=== PATIENT | female | born 1985 | race African-American/Black ===

== ENCOUNTER 2023-05-27 00:12 | Emergency (ER) | payer MEDICAID ==
[~2023-05-27] VITALS: Ht 180.3 cm; Wt 118.0 kg
[2023-05-27] MEDS ORDERED: HYDROcodone-ACET 10/325MG TAB PO ONE (00:30)
[2023-05-27] MEDS ORDERED: CEPH250C PO (00:36)
[2023-05-27] MEDS ORDERED: ACET300T58 PO (00:36)
[2023-05-27 00:46] VITALS: BP 125/81; PULSE 83; RESP 18; TEMP 97.9; O2SAT 97
== END 2023-05-27 00:49 | disposition home or self-care (01) ==
LOC: ER 00:19
DX: L02.412 Cutaneous abscess of left axilla (principal)

== ENCOUNTER 2023-08-11 12:12 | Emergency (ER) | payer MEDICAID ==
[~2023-08-11] VITALS: Ht 180.3 cm; Wt 117.9 kg
[~2023-08-11 12:12] MED LIST: ACET300T58 PO; CEPH250C PO
[2023-08-11 13:48] LABS: Basophils # (auto) 0 10 ^3/uL (0-0.2); Basophils % (auto) 0.2 % (0.0-2.0); Eosinophils # (auto) 0.2 10 ^3/uL (0-0.8); Hematocrit 34.7 % (36.0-46.0); Hemoglobin 10.7 g/dL (12.2-16.2); Lymphocytes # (auto) 3.2 10 ^3/uL (0.4-5.4); Lymphocytes % (auto) 40.3 % (10.0-50.0); Mean Corpuscular Hemoglobin 23.5 pg (28.0-32.0); Mean Corpuscular Volume 75.8 fL (80.0-100.0); Monocytes # (auto) 0.5 10 ^3/uL (0-1.3); Monocytes % (auto) 5.9 % (0.0-12.0); Neutrophils % (auto) 50.6 % (37.0-80.0); Red Blood Cells 4.58 10^6/uL (4.0-5.20); Red Cell Distribution Width 17.7 % (11.8-14.3); White Blood Cell 7.9 10^3/uL (4.4-10.8)
[2023-08-11 14:06] LABS: Alanine Aminotransferase < 9 U/L (7-40); Albumin 4.1 g/dL (3.2-4.8); Alkaline Phosphatase 80 U/L (46-116); Anion Gap 5 (5-15); Aspartate Aminotransferase 9 U/L (13-40); Bilirubin, Total 0.4 mg/dL (0.2-1.0); Blood Urea Nitrogen 7 mg/dL (9-23); Calcium 9.3 mg/dL (8.5-10.1); Carbon Dioxide 27 mmol/L (20-30); Chloride 109 mmol/L (98-107); Glucose 102 mg/dL (74-106); Potassium 3.8 mmol/L (3.5-5.1); Sodium 141 mmol/L (136-145); Total Protein 7.1 g/dL (5.7-8.2)
[2023-08-11 14:09] LABS: INR 1.07 (0.9-1.15); Partial Thromboplastin Time 29.8 SEC (24.5-34.5); Prothrombin Time 11.2 sec (9.3-11.8)
[2023-08-11 14:26] LABS: Urine Bacteria NONE SEEN /hpf (None Seen); Urine Blood 3+ /uL (Negative); Urine Clarity HAZY (Clear); Urine Mucus FEW (None Seen); Urine Protein, UAD 1+ (Negative); Urine Specific Gravity 1.025 (1.001-1.035); Urine WBC 69 /hpf (0 - 5)
[2023-08-11 14:33] LABS: Urine Color BROWN (Yellow)
[2023-08-11] MEDS ORDERED: CIPR-173 PO (14:51)
[2023-08-11 15:50] VITALS: BP 116/76; PULSE 69; RESP 17; TEMP 98.5; O2SAT 98
[2023-08-11] MEDS ORDERED: HYDR-4902 PO (15:54)
== END 2023-08-11 15:55 | disposition home or self-care (01) ==
LOC: ER 12:12
DX: N39.0 Urinary tract infection, site not specified (principal); N93.9 Abnormal uterine and vaginal bleeding, unspecified; D25.9 Leiomyoma of uterus, unspecified; F17.210 Nicotine dependence, cigarettes, uncomplicated; Z79.2 Long term (current) use of antibiotics; Z79.899 Other long term (current) drug therapy
CPT/HCPCS: 36415; 76856; 80053; 81001; 84702; 85025; 85610; 85730; 86850; 86900; 86901

== ENCOUNTER 2024-10-26 11:34 | Emergency (ER) | payer MEDICAID ==
[~2024-10-26] VITALS: Ht 180.3 cm; Wt 113.8 kg
[~2024-10-26 11:34] MED LIST changes: +CIPR-173 PO; +HYDR-4902 PO
[2024-10-26 13:09] VITALS: BP 127/86; PULSE 85; RESP 18; TEMP 98.5; O2SAT 99
[2024-10-26 13:30] LABS: Urine Bacteria None Seen /hpf (None Seen)
[2024-10-26 13:44] LABS: Urine Blood Negative /uL (Negative); Urine Clarity Clear (Clear); Urine Color Light-Yellow (Yellow); Urine Mucus FEW (None Seen); Urine Protein, UAD Negative (Negative); Urine Specific Gravity 1.025 (1.001-1.035); Urine Squamous Epithelial Cell FEW /hpf (<5); Urine Urobilinogen Normal (Negative); Urine WBC < 1 /HPF (0-5); Urine pH 7.5 (5.0-9.0)
[2024-10-26 14:47] LABS: COVID19 ANTIGEN SOFIA FIA NEGATIVE (NEGATIVE); Rapid Influenza A Negative (Negative); Rapid Influenza B Negative (Negative)
[2024-10-26] MEDS ORDERED: PROM1SOL4 PO (14:50)
[2024-10-26] MEDS ORDERED: ACET500T58 PO (14:50)
[2024-10-26] MEDS ORDERED: BENZ100C97 PO (14:50)
[2024-10-26] MEDS ORDERED: AZIT-43 PO (14:50)
--- NOTE | 2024-10-26 14:50 | ED.PDOC ---
History of Present Illness HPI Comments This is a pleasant 39-year-old female with no MHx that presents with a chief complaint of upper respiratory infection. Symptoms started five days ago and currently complains of myalgia, malaise, nonproductive cough and fevers that come and go. Taking [id number] medication with some improvement but camila ent is concerned about a lung infection at this time. 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 Family History Family History: Reviewed,noncontributory to illness, Unobtainable Social History Smoker: Cigarettes Alcohol: Occasionally Drugs: Denies Drug Use Lives In: Home All Other Systems: Reviewed and Negative (per hpi) Physical Exam General Appearance: No Apparent Distress, Normal HEENT: Normal ENT Inspection, Pharynx Normal, TMs Normal Neck: Full Range of Motion, Non-Tender, Normal, Normal Inspection Respiratory: Chest Non-Tender, Lungs Clear, No Accessory Muscle Use, No Respiratory Distress, Normal Breath Sounds Cardiovascular: No Edema, No JVD, No Murmur, No Gallop, Normal Peripheral Pulses, Regular Rate/Rhythm Breast Exam: Deferred Gastrointestinal: No Organomegaly, Non Tender, No Pulsatile Mass, Normal Bowel Sounds, Soft Genitalia: Deferred Pelvic: Deferred Rectal: Deferred Extremities: No calf tenderness, Normal capillary refill, Normal inspection, Normal range of motion, Non-tender, No pedal edema Musculoskeletal : Apperance: Normal Neurologic: Alert, No Motor Deficits, Normal Affect, Normal Mood, No Sensory Deficits Cerebellar Function: Normal Reflexes: Normal Skin: Dry, Normal Color, Warm Lymphatic: No Adenopathy Was a procedure done? Was a procedure done?: No Fever Differential Dx Differential Diagnosis: Influenza, Viral Syndrome X-Ray, Labs, Meds, VS Vital Signs Date Time Temp Pulse Resp B/P (MAP) Pulse Ox O2 Delivery O2 Flow Rate FiO2 10/26/24 13:09 98.5 85 18 127/86 (100) 99 98.5 10/26/24 13:09 85 18 99 Room Air 10/26/24 11:36 98.5 85 18 127/86 (100) 99 Lab Test 10/26/24 13:10 10/26/24 13:00 Range/Units Influenza Type A Antigen Negative Negative Influenza Type B Antigen Negative Negative SARS-CoV-2 Antigen (Rapid) Negative NEGATIVE Urine Color Light-yellow Yellow Urine Clarity Clear Clear Urine pH 7.5 5.0-9.0 Urine Specific [place] 1.025 1.001-1.035 Urine Protein Negative Negative Urine Ketones Negative Negative Urine Blood Negative Negative /uL Urine Nitrite Negative Negative Urine Bilirubin Negative Negative Urine Urobilinogen Normal Negative mg/dL Urine Leukocyte Esterase Negative Negative /uL Urine RBC <1 0 - 4 /hpf Urine Microscopic WBC < 1 0-5 /HPF Urine Squamous Epithelial Cells Few <5 /hpf Urine Bacteria None seen None Seen /hpf Urine Mucus Few None Seen Urine Glucose Normal Normal mg/dL Urine Test Negative Negative X-Ray, Labs, Meds, VS Comment On presentation, the patient is afebrile and has stable vital signs. The patient is overall well-appearing nontoxic on exam. On physical exam, respirations even and unlabored, clear to auscultation bilaterally. Oxygen stable on room air. Did not have any focal lung findings and therefore chest x-ray was not indicated during this exam Low suspicion of strep pharyngitis given physical exam findings and patient's presenting symptoms No signs of meningismus on exam Overall, the patient is well hydrated and nontoxic. Plan for symptomatic control + empiric tx. The patient was able to tolerate p.o. intake in the ED. at this time, patient is safe for discharge home. The exam findings and plan discussed. We will discharge home with PCP follow up and strict return precautions. Discussed that cough can linger up to 6 weeks after viral URI Supportive care and return precautions discussed Recommended vitamin C, rest, handwashing, and symptomatic care. Expect 2-week course with possibly of cough lingering up to 6 weeks. Nonpharmacological remedies for fluids has been recommended as well Time of 1ST Reevaluation: 14:45 Reevaluation 1ST: Improved Patient Education/Counseling: Diagnosis, Treatment Family Education/Counseling: Diagnosis, Treatment Departure 1 Departure Time of Disposition: 14:49 Impression: Primary Impression: Viral syndrome Disposition: 01 HOME / SELF CARE / HOMELESS Condition: Stable e-Prescriptions Acetaminophen (Acetaminophen) 500 Mg Tab 500 MG PO Q6HP PRN for 10 Days, #40 TAB 0 Refills Prov: KORINA WHITTINGTON NP 10/26/24 Promethazine-Dm (Promethazine Dm 6.25-15 mg/5Ml) 1 Alyce Alyce 5 ML PO TID for 10 Days, #150 ML 0 Refills Prov: KORINA WHITTINGTON NP 10/26/24 Azithromycin (Azithromycin) 250 Mg Tab 250 MG PO DAILY MDD 500 for 5 Days, #6 TAB 0 Refills 2 TABLETS ORALLY ON DAY ONE, THEN 1 TABLET ORALLY DAILY FOR 4 DAYS Prov: KORINA WHITTINGTON NP 10/26/24 Benzonatate (Benzonatate) 100 Mg Cap 1 CAP PO TID for 10 Days, #30 CAP 0 Refills Prov: KORINA WHITTINGTON NP 10/26/24 Critical Care Note Critical Care Time?: No Stability Stability form required: No Heart Score Heart Score: Heart Score Response (Comments) Value History N/A 0 EKG N/A 0 Age N/A 0 Risk Factors N/A 0 Troponin N/A 0 Total 0 KORINA WHITTINGTON NP Oct 26, 2024 14:50
== END 2024-10-26 14:57 | disposition home or self-care (01) ==
LOC: ER 11:34
DX: B34.9 Viral infection, unspecified (principal); F17.210 Nicotine dependence, cigarettes, uncomplicated; Z20.822 Contact with and (suspected) exposure to COVID-19
CPT/HCPCS: 36415; 81001; 81025; 87426; 87804

== ENCOUNTER 2025-06-22 11:27 | Inpatient (IN) | payer MEDICAID, OTHER ==
[~2025-06-22] VITALS: Ht 180.3 cm; Wt 116.7 kg
[~2025-06-22 11:27] MED LIST changes: +ACET500T58 PO; +AZIT-43 PO; +BENZ100C97 PO; +PROM1SOL4 PO
[2025-06-22 11:54] LABS: Hematocrit 31.9 % (36.0-46.0); Hemoglobin 9.6 g/dL (12.2-16.2); Mean Corpuscular Hemoglobin 21.7 pg (28.0-32.0); Mean Corpuscular Volume 72.2 fL (80.0-100.0); Nucleated Red Blood Cells % 0.0 %
[2025-06-22 12:10] LABS: Chloride 105 mmol/L (98-107); Potassium 4.1 mmol/L (3.5-5.1); Sodium 138 mmol/L (136-145)
[2025-06-22 12:11] LABS: Anion Gap 6 (5-15); Calcium 8.8 mg/dL (8.7-10.4); Carbon Dioxide 27 mmol/L (20-31)
[2025-06-22 12:16] LABS: BUN/Creatinine Ratio 11.3 (10.0-20.0); Blood Urea Nitrogen 9 mg/dL (9-23); Glucose 90 mg/dL (74-106)
--- NOTE | 2025-06-22 12:37 | ECG ---
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
--- NOTE | 2025-06-22 16:57 | DVH ---
XY CHEST TWO VIEWS ROUTINE CLINICAL HISTORY: CHESTPAIN COMPARISON: None TECHNIQUE: Frontal and lateral view of the chest was obtained FINDINGS: Lines and Tubes: None Lungs: No focal consolidation. Pleura: No effusion. No pneumothorax. Cardiomediastinal contours: Unremarkable Bones: No acute osseous abnormality. IMPRESSION: 1. No acute cardiopulmonary disease.
[2025-06-22] MEDS: IBUPROFEN 600 MG TAB PO ONE (18:33)
--- NOTE | 2025-06-22 18:40 | ED.PDOC ---
History of Present Illness HPI Comments Ms. Pham a 39-year-old female with no prior medical history, who presents today with chief complaint of chest pain. The patient states that yesterday she had onset of generalized chest pain described as tightness, 9/10 intensity, associated with febrile sensation, chills, generalized body aches, weakness, and shortness of breath the pain on deep inspiration. Refers that she was recently with her sister who at the time was presenting similar symptoms. She denies nausea, vomiting, cough, nasal congestion, nasal discharge, and palpitations. Due to persistence of symptoms the patient presented for evaluation in the emergency department. On initial evaluation, the patient seems well but fatigued, vitals are stable. Chief Complaint: Chest Pain Time Seen by MD: 18:00 Primary Care Provider: ROLAND Allergies: Coded Allergies: NO KNOWN ALLERGIES (Unverified , 09/27/14) Home Meds Active Scripts Acetaminophen (Acetaminophen) 500 Mg Tab, 500 MG PO Q6HP PRN for 10 Days, #40 TAB 0 Refills Prov:KORINA WHITTINGTON NP 10/26/24 Promethazine-Dm (Promethazine Dm 6.25-15 mg/5Ml) 1 Alyce Alyce, 5 ML PO TID for 10 Days, #150 ML 0 Refills Prov:KORINA WHITTINGTON NP 10/26/24 Azithromycin (Azithromycin) 250 Mg Tab, 250 MG PO DAILY MDD 500 for 5 Days, #6 TAB 0 Refills 2 TABLETS ORALLY ON DAY ONE, THEN 1 TABLET ORALLY DAILY FOR 4 DAYS Prov:KORINA WHITTINGTON NP 10/26/24 Benzonatate (Benzonatate) 100 Mg Cap, 1 CAP PO TID for 10 Days, #30 CAP 0 Refills Prov:KORINA WHITTINGTON NP 10/26/24 Hydrocodone-Acetaminophen (Hydrocodone Bitartrate/AC 5-325 mg) 1 Tab Tab, 1 TAB PO Q8HP PRN for 7 Days, #21 TAB Prov:NAIN GUZMÁN MD 08/11/23 Ciprofloxacin Hcl (Cipro) 500 Mg Tab, 1 TAB PO BID, #14 TAB Prov:NAIN GUZMÁN MD 08/11/23 Acetaminophen W/ Codeine (Tylenol #4 W/Codeine) 1 Tab Tb, 1 TAB PO Q6HP PRN, #20 TAB Prov:VOLODYMYR OCASIO PAC 05/27/23 Cephalexin (KEFLEX CAPSULE) 250 Mg Cp, 1 CAP PO QID for 10 Days, #40 CAP Prov:VOLODYMYR OCASIO PAC 05/27/23 Information Source: Patient Mode of Arrival: Ambulatory Severity: Mild Timing: Days Duration: Since onset Past Medical History PAST MEDICAL HISTORY: Denies Surgical History: BTL, , Hernia Repair 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 History Family History Family History: Reviewed,noncontributory to illness, Family hx of DM Social History Smoker: Cigarettes (States she smokes 1 pack of cigarettes every 3-4 days) Alcohol: Occasionally Drugs: Denies Drug Use Lives In: Home Constitutional: reports: chills, weakness, others (Febrile sensation, generalized body aches); denies: diaphoresis, fatigue, fever, malaise, sweats EENTM: denies: blurred vision, double vision, nasal discharge, nose congestion, throat pain, throat swelling Respiratory: reports: shortness of breath; denies: cough, hemoptysis, orthopnea, SOB at rest, SOB with excertion, stridor, wheezing Cardiovascular: reports: chest pain; denies: dizzy spells, diaphoresis, Dyspnea on exertion, edema, irregular heart beat, left arm pain, lightheadedness, palpitations Gastrointestinal: denies: abdomen distended, abdominal pain, constipated, diarrhea, dysphagia, difficulty swallowing, hematemesis, melena, nausea, poor appetite, poor fluid intake, vomiting Genitourinary: reports: dyspareunia; denies: burning, dysuria, flank pain, frequency, hematuria, incontinence, pain, urgency Neurological: denies: dizziness, fainting, headache, numbness, paresthesia, pre-existing deficit, seizure, speech problems, tremors, weakness Musculoskeletal: denies: back pain, joint pain, joint swelling, muscle pain, muscle stiffness, neck pain Integumetry: denies: bruises, laceration, lesions, lumps, rash, wounds Physical Exam General Appearance: Mild Distress, Obese HEENT: Normal ENT Inspection, PERRL/EOMI, Pharynx Normal Neck: Full Range of Motion, Non-Tender, Normal Inspection Respiratory: Lungs Clear, No Accessory Muscle Use, No Respiratory Distress, Normal Breath Sounds, Other (Tenderness to palpation of the chest wall) Cardiovascular: No Edema, No Murmur, Normal Peripheral Pulses, Regular Rate/Rhythm Breast Exam: Deferred Gastrointestinal: Non Tender, No Pulsatile Mass, Normal Bowel Sounds, Soft Genitalia: Deferred Pelvic: Deferred Rectal: Deferred Extremities: Normal capillary refill, Normal inspection, Normal range of motion, Non-tender, No pedal edema Neurologic: Normal Affect, Normal Mood, No Sensory Deficits Cerebellar Function: Normal Reflexes: NOT DONE Skin: Normal Color Lymphatic: Other (No cervical adenopathy) Was a procedure done? Was a procedure done?: No EKG EKG : Pulse Rate (adult): 82 [place]: Normal Cardiac Rhythm: NSR Block: None Hypertrophy: None ST: Normal Differential Dx Considerations may include: Pneumonitis, costochondritis, pneumonia, bronchitis, COVID, influenza, ACS, TN X-Ray, Labs, Meds, VS Vital Signs Date Time Temp Pulse Resp B/P (MAP) Pulse Ox O2 Delivery O2 Flow Rate FiO2 06/22/25 17:54 83 16 105/75 (85) 98 06/22/25 15:20 98.4 83 16 112/78 (89) 99 98.4 06/22/25 15:20 83 06/22/25 12:36 82 06/22/25 11:37 84 06/22/25 11:30 98.8 83 16 129/83 97 98.8 Lab Test 06/22/25 15:19 06/22/25 12:53 06/22/25 11:39 Range/Units Urine Test Negative Negative Troponin I High Sensitivity < 3 L < 3 L </=34 ng/L White Blood Count 14.3 H 4.4-10.8 10^3/uL Red Blood Count 4.42 4.0-5.20 10^6/uL Hemoglobin 9.6 L 12.2-16.2 g/dL Hematocrit 31.9 L 36.0-46.0 % Mean Corpuscular Volume 72.2 L 80.0-100.0 fL Mean Corpuscular Hemoglobin 21.7 L 28.0-32.0 pg Mean Corpuscular Hemoglobin Concent 30.0 L 32.0-36.0 g/dL Red Cell Distribution Width 17.4 H 11.8-14.3 % Platelet Count 421 140-450 10^3/uL Mean Platelet Volume 8.0 6.9-10.8 fL Neutrophils (%) (Auto) 74.7 37.0-80.0 % Lymphocytes (%) (Auto) 17.0 10.0-50.0 % Monocytes (%) (Auto) 7.6 0.0-12.0 % Eosinophils (%) (Auto) 0.6 0.0-7.0 % Basophils (%) (Auto) 0.1 0.0-2.0 % Neutrophils # (Auto) 10.7 H 1.6-8.6 10 ^3/uL Lymphocytes # (Auto) 2.4 0.4-5.4 10 ^3/uL Monocytes # (Auto) 1.1 0-1.3 10 ^3/uL Eosinophils # (Auto) 0.1 0-0.8 10 ^3/uL Basophils # (Auto) 0 0-0.2 10 ^3/uL Nucleated Red Blood Cells 0.0 % Sodium Level 138 136-145 mmol/L Potassium Level 4.1 3.5-5.1 mmol/L Chloride Level 105 98-107 mmol/L Carbon Dioxide Level 27 20-31 mmol/L Anion Gap 6 5-15 Blood Urea Nitrogen 9 9-23 mg/dL Creatinine 0.80 0.550-1.02 mg/dL Glomerular Filtration Rate Calc 97 >90 mL/min BUN/Creatinine Ratio 11.3 10.0-20.0 Serum Glucose 90 74-106 mg/dL Calcium Level 8.8 8.7-10.4 mg/dL Current Medications Medications (Trade) Dose Ordered Sig/Lay Route Start Time Stop Time Status Last Admin Aspirin 81 mg ONCE ONCE PO 06/22/25 15:45 06/22/25 15:46 DC 06/22/25 16:40 Time of 1ST Reevaluation: 18:30 Reevaluation 1ST: Unchanged Patient Education/Counseling: Diagnosis, Treatment Family Education/Counseling: Diagnosis, Treatment Comments The patient presents today with chief complaint of chest tightness and generalized body aches Initial evaluation the patient seems well however fatigued, with stable vitals EKG shows normal sinus rhythm CBC shows WBCs 14.3 and microcytic anemia, BMP without significant findings, and troponins are negative Chest x-ray shows no acute cardiopulmonary disease Urinalysis, COVID, and influenza rapid test have been ordered 1 dose of ceftriaxone and azithromycin have been given The patient will be admitted for further workup and management SEPSIS Sepsis Screen Date sepsis recognized/suspect: Jun 22, 2025 Time Sepsis recognized/suspect: 1130 Recent Procedure: No On Antibiotic Therapy: No Respiratory Rate >20: No Heart Rate >90: No Temp<36 C (96.8 F) or >38.3 C: No SBP <90 or MAP <65 mmHG: No New Acute Mental Status Change: No Is the patient on CPAP, BIPAP,: No Physician Orders Chest Two Views Routine (06/22/25 11:29) Electrocardigram (06/22/25 12:29) Electrocardigram (06/22/25 14:29) Ceftriaxone 1gm/50ml (Rocephin) (06/22/25 18:00) Urinalysis (06/22/25 18:00) Rapid Influenza A&B (06/22/25 18:16) Covid19 Antigen Yelena (06/22/25 ) Ibuprofen Tablet (Motrin Tablet) (06/22/25 18:30) Vital Signs Date Time Temp Pulse Resp B/P (MAP) Pulse Ox O2 Delivery O2 Flow Rate FiO2 06/22/25 17:54 83 16 105/75 (85) 98 06/22/25 15:20 98.4 83 16 112/78 (89) 99 98.4 06/22/25 15:20 83 06/22/25 12:36 82 06/22/25 11:37 84 06/22/25 11:30 98.8 83 16 129/83 97 98.8 Laboratory Tests Test 06/22/25 11:39 White Blood Count 14.3 10^3/uL (4.4-10.8) H Medications Medications Dose Ordered Sig/Lay Route Start Time Stop Time Status Last Admin Dose Admin Aspirin 81 mg ONCE ONCE PO 06/22/25 15:45 06/22/25 15:46 DC 06/22/25 16:40 Departure 1 Departure Time of Disposition: 18:39 Impression: Primary Impression: Pneumonitis Additional Impression: Costochondritis Disposition: 30 STILL A PATIENT Admit to: Med Surg Condition: Stable Critical Care Note Critical Care Time?: No Stability Stability form required: VERONICA Griffiths RESIDENT Jun 22, 2025 18:39
[2025-06-22] MEDS: AZITHROMYCIN 500MG/ 250ML 250 ML IV ONE (19:22)
[2025-06-22 19:37] VITALS: PULSE 78; RESP 18; O2SAT 97
[2025-06-22 19:43] LABS: Urine Protein, UAD Negative (Negative)
--- NOTE | 2025-06-22 20:04 | ECG ---
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
[2025-06-22] MEDS: SODIUM CHLORIDE 0.9% 1,000 ML IV ONE (20:30)
[2025-06-22] MEDS ORDERED: ACETAMINOPHEN 325 MG TAB PO PRN (20:30)
[2025-06-22] MEDS ORDERED: ONDANSETRON HCL 4 MG/2 ML VIAL IV PRN (20:30)
[2025-06-22 20:55] LABS: COVID19 ANTIGEN SOFIA FIA NEGATIVE (NEGATIVE)
[2025-06-22] MEDS: PANTOPRAZOLE 40 MG TAB PO ONE (21:33)
[2025-06-22] MEDS: DOXYCYCLINE 100MG/100ML 100 ML IV SCH (21:33)
[2025-06-22 21:41] LABS: Hemoglobin 9.5 g/dL (12.2-16.2)
[2025-06-22 21:43] LABS: Hematocrit 30.6 % (36.0-46.0); Mean Corpuscular Hemoglobin 22.1 pg (28.0-32.0); Mean Corpuscular Volume 71.7 fL (80.0-100.0); Nucleated Red Blood Cells % 0.0 %
[2025-06-22] MEDS: ENOXAPARIN SOD 40 MG/0.4 ML SYRINGE SC SCH (21:44)
[2025-06-22 22:02] LABS: Albumin 4.1 g/dL (3.2-4.8); Alkaline Phosphatase 83 U/L (46-116); Anion Gap 8 (5-15); BUN/Creatinine Ratio 11.7 (10.0-20.0); Bilirubin, Total 0.5 mg/dL (0.2-1.0); Blood Urea Nitrogen 9 mg/dL (9-23); Calcium 8.7 mg/dL (8.7-10.4); Carbon Dioxide 26 mmol/L (20-31); Chloride 104 mmol/L (98-107); Glucose 92 mg/dL (74-106); Magnesium 1.9 mg/dL (1.6-2.6); Sodium 138 mmol/L (136-145); Total Protein 7.6 g/dL (5.7-8.2)
[2025-06-22 22:05] VITALS: BP 140/80; PULSE 88; RESP 16; RESP 20; TEMP 98.2; O2SAT 98
[2025-06-22 22:29] LABS: Alanine Aminotransferase < 9 U/L (7-40); Potassium 3.4 mmol/L (3.5-5.1)
[2025-06-22] MEDS: ATORVASTATIN 20 MG TAB PO SCH (22:37)
[2025-06-22] MEDS: BACLOFEN 10 MG TAB PO SCH (22:37)
--- NOTE | 2025-06-22 23:13 | DVHHPRES ---
History of Present Illness Resident Creating Document: JULIA JUSTIN RESIDENT History of Present Illness 39-year-old female with a history of chronic right axillary draining abscess presented to the ED with acute chronic chest pain. She reports squeezing chest pain starting yesterday, rated 9/10, radiating to the upper abdomen and back, onset while standing, increased on palpation, partially relieved by slow breathing, not worsened by exertion or position. Pain has been constant since onset and unresponsive to aspirin. Associated symptoms include body aches and chills. She denies shortness of breath, nausea, vomiting, fever, headache, cough, reflux symptoms, or upper respiratory symptoms. She reports a chronic draining axillary abscess with ongoing white discharge with no acute changes. Vital signs on admission temp 98.7, HR 83, BP 152/50, SpO2 96% on room air. WBC 14.3, hemoglobin 9.6, MCV 72.2, tropes negative, urinalysis negative. Chest x-ray is normal. We are admitting the patient for further workup and management. PMH/PSH: Right axillary abscess incised and drained Family history: Mother had pancreatic cancer and diabetes Social history: Patient denies any alcohol or drug abuse but admits to smoking 1 pack in 3-4 days for 7-8 years Allergies: None Home medication: Multivitamins PCP: Does not have 1 at the moment Code status: Full code Review of Systems Constitutional: Yes: Chills, Malaise; No: Fever, Sweats, Weakness, Other Eyes: No: Pain, Vision change, Conjunctivae inflammation, Eyelid inflammation, Other, Redness ENT: No: Ear pain, Ear discharge, Nose pain, Nose discharge, Nose congestion, Mouth pain, Mouth swelling, Throat pain, Throat swelling, Other Respiratory: No: Cough, Dry, Shortness of breath, SOB with excertion, Wheezing, Hemoptysis, Pleuritic Pain, Sputum, Wheezing, Other Cardiovascular: Chest Pain; No: Palpitations, Orthopnea, Paroxysmal Noc. Dyspnea, Edema, Lt Headedness, Other Gastrointestinal: No: Nausea, Vomiting, Abdominal Pain, Diarrhea, Constipation, Melena, Hematochezia, Other Genitourinary: No Dysuria, No Frequency, No Incontinence, No Hematuria, No Retention, No Other Musculoskeletal: No: other, neck pain, shoulder pain, arm pain, back pain, hand pain, leg pain, foot pain Skin: No: Rash, Lesions, Jaundice, Bruising, Other Neurological: No: Weakness, Numbness, Incoordination, Change in speech, Confusion, Seizures, Other Allergies: Coded Allergies: NO KNOWN ALLERGIES (Unverified , 09/27/14) Medications Current Medications Medications Dose Ordered Sig/Lay Route Start Time Stop Time Status Last Admin Dose Admin Ondansetron HCl 4 mg Q4HP PRN IV 06/22/25 20:30 Acetaminophen 650 mg Q6HP PRN PO 06/22/25 20:30 Enoxaparin Sodium 40 mg DAILY SC 06/22/25 20:30 Baclofen 10 mg Q8HR PO 06/22/25 22:00 06/22/25 22:37 10 MG Pantoprazole Sodium 40 mg DAILY@0600 PO 06/23/25 06:00 Ceftriaxone Sodium 50 ml @ 100 mls/hr DAILY@09 IV 06/23/25 09:00 Aspirin 81 mg DAILY PO 06/23/25 10:00 Atorvastatin Calcium 40 mg HS PO 06/22/25 22:00 06/22/25 22:37 40 MG Ketorolac Tromethamine 30 mg Q6HPRN PRN IV 06/22/25 20:30 06/27/25 20:29 Doxycycline Hyclate 100 ml @ 50 mls/hr Q12H IV 06/22/25 21:00 06/22/25 21:33 50 MLS/HR Exam Vital Signs Vital Signs Date Time Temp Pulse Resp B/P (MAP) Pulse Ox O2 Delivery O2 Flow Rate FiO2 06/22/25 22:05 88 16 98 Room Air* 0 21 06/22/25 22:05 98.2 140/80 (100) 98.2 Exam General Appearance: Alert, Oriented X3, Cooperative, Not in acute distress HEENT: Atraumatic, Mucous membranes moist/pink Respiratory: Clear to auscultation, Normal air movement, No added sounds Cardiovascular: Regular rate, Normal S1, Normal S2, No murmurs, tenderness on palpation of chest, back Abdominal: Active bowel sounds, Soft, no distention, no tenderness Extremities: No edema, Normal pulses, No tenderness/swelling Skin: No Significant rash, for tunnels in the axilla with lowest one draining white fluid Neuro: Normal speech, sensorimotor deficits none Psych/Mental Status: Mental status NL, Mood NL Nurse was there as filtering machine tender helper during examination Labs/Xrays Labs Test 06/22/25 21:07 06/22/25 20:21 06/22/25 19:50 06/22/25 15:19 Range/Units White Blood Count 12.7 H 4.4-10.8 10^3/uL Red Blood Count 4.27 4.0-5.20 10^6/uL Hemoglobin 9.5 L 12.2-16.2 g/dL Hematocrit 30.6 L 36.0-46.0 % Mean Corpuscular Volume 71.7 L 80.0-100.0 fL Mean Corpuscular Hemoglobin 22.1 L 28.0-32.0 pg Mean Corpuscular Hemoglobin Concent 30.9 L 32.0-36.0 g/dL Red Cell Distribution Width 17.2 H 11.8-14.3 % Platelet Count 381 140-450 10^3/uL Mean Platelet Volume 8.1 6.9-10.8 fL Neutrophils (%) (Auto) 70.1 37.0-80.0 % Lymphocytes (%) (Auto) 22.1 10.0-50.0 % Monocytes (%) (Auto) 7.0 0.0-12.0 % Eosinophils (%) (Auto) 0.6 0.0-7.0 % Basophils (%) (Auto) 0.2 0.0-2.0 % Neutrophils # (Auto) 8.9 H 1.6-8.6 10 ^3/uL Lymphocytes # (Auto) 2.8 0.4-5.4 10 ^3/uL Monocytes # (Auto) 0.9 0-1.3 10 ^3/uL Eosinophils # (Auto) 0.1 0-0.8 10 ^3/uL Basophils # (Auto) 0 0-0.2 10 ^3/uL Nucleated Red Blood Cells 0.0 % Erythrocyte Sedimentation Rate 28 H 0-20 mm/hr Sodium Level 138 136-145 mmol/L Potassium Level 3.4 L 3.5-5.1 mmol/L Chloride Level 104 98-107 mmol/L Carbon Dioxide Level 26 20-31 mmol/L Anion Gap 8 5-15 Blood Urea Nitrogen 9 9-23 mg/dL Creatinine 0.77 0.550-1.02 mg/dL Glomerular Filtration Rate Calc 101 >90 mL/min BUN/Creatinine Ratio 11.7 10.0-20.0 Serum Glucose 92 74-106 mg/dL Lactic Acid Level 0.6 0.4-2.0 mmol/L Calcium Level 8.7 8.7-10.4 mg/dL Magnesium Level 1.9 1.6-2.6 mg/dL Total Bilirubin 0.5 0.2-1.0 mg/dL Aspartate Amino Transferase (AST) 16 13-40 U/L Alanine Aminotransferase (ALT) < 9 7-40 U/L Alkaline Phosphatase 83 46-116 U/L C-Reactive Protein High Sensitivity 5.52 H <1.0 mg/dL B-Type Natriuretic Peptide 24.96 0-100 pg/mL Total Protein 7.6 5.7-8.2 g/dL Albumin 4.1 3.2-4.8 g/dL Influenza Type A Antigen Negative Negative Influenza Type B Antigen Negative Negative SARS-CoV-2 Antigen (Rapid) Negative NEGATIVE Urine Color Yellow Yellow Urine Clarity Turbid H Clear Urine pH 6.0 5.0-9.0 Urine Specific [place] 1.027 1.001-1.035 Urine Protein Negative Negative Urine Ketones Negative Negative Urine Blood Negative Negative /uL Urine Nitrite Negative Negative Urine Bilirubin Negative Negative Urine Urobilinogen 3 H Negative mg/dL Urine Leukocyte Esterase Trace Negative /uL Urine RBC 2 0 - 4 /hpf Urine Microscopic WBC 3 0-5 /HPF Urine Squamous Epithelial Cells Mod <5 /hpf Urine Bacteria None seen None Seen /hpf Urine Mucus Few None Seen Urine Glucose Normal Normal mg/dL Urine Test Negative Negative Test 06/22/25 12:53 Range/Units Troponin I High Sensitivity < 3 L </=34 ng/L SEPSIS Sepsis Screen Date sepsis recognized/suspect: Jun 22, 2025 Time Sepsis recognized/suspect: 1129 Recent Procedure: No On Antibiotic Therapy: No Respiratory Rate >20: No Heart Rate >90: No Temp<36 C (96.8 F) or >38.3 C: No SBP <90 or MAP <65 mmHG: No New Acute Mental Status Change: No Is the patient on CPAP, BIPAP,: No Physician Orders Admit (06/22/25 20:21) Code Status (06/22/25 20:21) Ondansetron Hcl (Zofran) (06/22/25 20:30) Complete Blood Count (06/23/25 04:00) Comprehensive Metabolic Panel (06/23/25 04:00) Acetaminophen Tablet (Tylenol Tablet) (06/22/25 20:30) Enoxaparin Sodium (Lovenox) (06/22/25 20:30) Regular Diet (06/23/25 Breakfast) Drug Screen (06/22/25 20:21) Baclofen Tablet (Liorisal Tablet) (06/22/25 22:00) Pantoprazole Tablet (Protonix Tablet) (06/23/25 06:00) Sodium Chloride 0.9% (06/22/25 20:30) Wound Culture W/ Gs (06/22/25 20:21) Ceftriaxone 1gm/50ml (Rocephin) (06/23/25 09:00) Aspirin Tablet (06/23/25 10:00) Atorvastatin (Lipitor) (06/22/25 22:00) Ketorolac Injection (Toradol Injection) (06/22/25 20:30) Echo 2d Mode Cardiac Dop (06/22/25 20:21) Doxycycline 100mg/100ml (Vibramycin) (06/22/25 21:00) Iron Panel (06/22/25 23:00) Ferritin (06/22/25 23:00) Potassium Er Tablet (Klor-Con Tablet) (06/22/25 23:15) Vital Signs Date Time Temp Pulse Resp B/P (MAP) Pulse Ox O2 Delivery O2 Flow Rate FiO2 06/22/25 22:05 88 16 98 Room Air* 0 21 06/22/25 22:05 98.2 88 20 140/80 (100) 98 98.2 06/22/25 19:37 78 18 97 Room Air* 0 21 06/22/25 19:36 99.3 78 18 112/72 (85) 97 99.3 06/22/25 18:39 82 06/22/25 18:33 98.9 06/22/25 17:54 83 16 105/75 (85) 98 06/22/25 15:20 98.4 83 16 112/78 (89) 99 98.4 06/22/25 15:20 83 Laboratory Tests Test 06/22/25 11:39 06/22/25 21:07 White Blood Count 14.3 10^3/uL (4.4-10.8) H 12.7 10^3/uL (4.4-10.8) H Lactic Acid Level 0.6 mmol/L (0.4-2.0) Medications Medications Dose Ordered Sig/Lay Route Start Time Stop Time Status Last Admin Dose Admin Aspirin 81 mg ONCE ONCE PO 06/22/25 15:45 06/22/25 15:46 DC 06/22/25 16:40 81 MG Atorvastatin Calcium 40 mg HS PO 06/22/25 22:00 06/22/25 22:37 40 MG Azithromycin 250 ml @ 125 mls/hr ONCE ONCE IV 06/22/25 18:45 06/22/25 20:44 DC 06/22/25 19:22 125 MLS/HR Baclofen 10 mg Q8HR PO 06/22/25 22:00 06/22/25 22:37 10 MG Ceftriaxone Sodium 50 ml @ 100 mls/hr ONCE ONCE IV 06/22/25 18:00 06/22/25 18:29 DC 06/22/25 18:36 100 MLS/HR Doxycycline Hyclate 100 ml @ 50 mls/hr Q12H IV 06/22/25 21:00 06/22/25 21:33 50 MLS/HR Ibuprofen 600 mg ONCE ONCE PO 06/22/25 18:30 06/22/25 18:31 DC 06/22/25 18:33 600 MG Pantoprazole Sodium 40 mg ONCE ONCE PO 06/22/25 20:30 06/22/25 21:22 DC 06/22/25 21:33 40 MG Assessment/Plan Assessment/Plan #Viral syndrome #Acute chest pain, ruled out ACS, likely MSK - EKG - Troponins negative <3, <3 - pain management with -acetaminophen 650 mg p.o. q.6 PRN -baclofen 10 mg p.o. Q 8 HR lay -Toradol to take q.6 PRN - ondansetron 4 mg IV q.4 PRN - aspirin 81 mg p.o. daily - Lipitor 40 mg p.o. HS daily - magnesium 1.9 - covid, flu negative - x-ray shows no acute cardiopulmonary disease - BNP 24.96 - echo - IV normal saline 0.9% #Right axillary draining wound, likely hidradenitis suppurativa - ESR28, CRP 5.52 - wound culture - doxycycline 100 mg b.i.d. IV - consider per orally doxycycline for 3 months on discharge for hidradenitis suppurativa - ceftriaxone 1 g IV daily - lactic acid 0.6 # hyperchromic, microcytic anemia - Iron 17, TIBC 3-4,% saturation 5.1, ferritin 11.4 -Ferrous sulfate 325 mg p.o. daily -Stool occult blood # Obesity, BMI 34.9 kg/M2 - patient was counseled regarding weight loss, healthy lifestyle, exercise and dietary modification for over 8 minutes # hypokalemia - repleted #Substance abuse, cannabinoid -UDS positive for cannabinoids -patient was counseled extensively regarding the need of cessation and the adverse effect it has on her health GI prophylaxis: pantoprazole 40 mg p.o. daily DVT prophylaxis: Lovenox 40 mg subcutaneously daily Diet: regular diet Goals of care discussed with the patient for more than 27 minutes: Full code status Case discussed with Dr. Zeng, patient Plan discussed with: Patient My Orders Orders - JULIA JUSTIN RESIDENT Procedure Category Date Status Time Admit ADMIT 06/22/25 Transmitted 20:21 Code Status CODE 06/22/25 Transmitted 20:21 Ondansetron Hcl PHA 06/22/25 In Process (Zofran) 20:30 Complete Blood Count LAB 06/23/25 Verified 04:00 Comprehensive LAB 06/23/25 Verified Metabolic Panel 04:00 Acetaminophen Tablet PHA 06/22/25 In Process (Tylenol Tablet) 20:30 Enoxaparin Sodium PHA 06/22/25 In Process (Lovenox) 20:30 Regular Diet DIET 06/23/25 Transmitted Breakfast Drug Screen LAB 06/22/25 Logged 20:21 Baclofen Tablet PHA 06/22/25 In Process (Liorisal Tablet) 22:00 Pantoprazole Tablet PHA 06/23/25 In Process (Protonix Tablet) 06:00 Sodium Chloride 0.9% PHA 06/22/25 In Process 20:30 Wound Culture W/ Gs JUSTYNA 06/22/25 Logged 20:21 Ceftriaxone 1gm/50ml PHA 06/23/25 In Process (Rocephin) 09:00 Aspirin Tablet PHA 06/23/25 In Process 10:00 Atorvastatin (Lipitor) PHA 06/22/25 In Process 22:00 Ketorolac Injection PHA 06/22/25 In Process (Toradol Injection) 20:30 Echo 2d Mode Cardiac US 06/22/25 Logged DOP 20:21 Doxycycline PHA 06/22/25 In Process 100mg/100ml 21:00 Iron Panel LAB 06/22/25 In Process 23:00 Ferritin LAB 06/22/25 In Process 23:00 Potassium Er Tablet PHA 06/22/25 In Process (Klor-Con Tablet) 23:15 Date of Service: Jun 22, 2025 Billing Provider: LUIS EDUARDO ZNEG MD Common Visit Codes: [id number] INP/OBS CARE (HIGH) Secondary Visit Codes: [id number] CARE PLAN 30 MINUTES JULIA JUSTIN RESIDENT Jun 22, 2025 23:13
[2025-06-22 23:24] LABS: Total Iron Binding Capacity 334.0 ug/dL (250-425)
[2025-06-22 23:26] LABS: Iron 17.0 ug/dL (50-170)
[2025-06-23] MEDS: POTASSIUM CHL 20 Meq TABLET PO ONE (00:06)
[2025-06-23 00:54] VITALS: BP 121/78; PULSE 77; RESP 18; TEMP 96.4; O2SAT 99
[2025-06-23 01:31] LABS: Amphetamine Screen, Urine Neg (NEGATIVE); Benzodiazephine Screen, Urine Neg (NEGATIVE)
[2025-06-23 01:32] LABS: Barbiturate Scree,Urine Neg (NEGATIVE); Cannabinoid Screen, Urine Pos (NEGATIVE); Cocaine Screen, Urine Neg (NEGATIVE); Opiate Scree,Urine Neg (NEGATIVE); Phencyclidine Screen, Urine Neg (NEGATIVE)
[2025-06-23] MEDS: KETOROLAC TROMETH 30 MG/ML 1ML VIAL IV PRN (04:20)
[2025-06-23 05:00] VITALS: BP 138/81; PULSE 83; RESP 20; TEMP 97; O2SAT 98
[2025-06-23] MEDS: PANTOPRAZOLE 40 MG TAB PO SCH (06:29)
[2025-06-23 06:41] LABS: Hemoglobin 9.4 g/dL (12.2-16.2); Nucleated Red Blood Cells % 0.0 %
[2025-06-23 06:46] LABS: Hematocrit 29.7 % (36.0-46.0); Mean Corpuscular Hemoglobin 22.6 pg (28.0-32.0); Mean Corpuscular Volume 71.1 fL (80.0-100.0)
[2025-06-23 06:51] LABS: Alkaline Phosphatase 79 U/L (46-116); Anion Gap 9 (5-15); BUN/Creatinine Ratio 9.5 (10.0-20.0); Calcium 9.1 mg/dL (8.7-10.4); Carbon Dioxide 25 mmol/L (20-31); Chloride 105 mmol/L (98-107); Glucose 98 mg/dL (74-106); Potassium 3.9 mmol/L (3.5-5.1); Sodium 139 mmol/L (136-145); Total Protein 7.4 g/dL (5.7-8.2)
[2025-06-23 06:52] LABS: Albumin 3.9 g/dL (3.2-4.8); Bilirubin, Total 0.4 mg/dL (0.2-1.0)
[2025-06-23 06:53] LABS: Alanine Aminotransferase < 9 U/L (7-40); Blood Urea Nitrogen 7 mg/dL (9-23)
[2025-06-23 09:08] VITALS: BP 105/80; PULSE 80; RESP 16; TEMP 97.7; O2SAT 98
[2025-06-23] MEDS: FERROUS SULFATE 325mg EC TAB PO ONE (09:20)
[2025-06-23 12:54] VITALS: BP 125/82; PULSE 89; RESP 20; TEMP 97; O2SAT 98
--- NOTE | 2025-06-23 13:19 | DVHPN2 ---
Reviewed: H&P Changes from previous H/P or p: No Changes General: Per HPI Eyes: No Pain, No Vision change, No Conjunctivae inflammation, No Eyelid inflammation, No Other, No Redness ENT: No Ear pain, No Ear discharge, No Nose pain, No Nose discharge, No Nose congestion, No Mouth pain, No Mouth swelling, No Throat pain, No Throat swelling, No Other Cardiovascular: Chest Pain; No Palpitations, No Orthopnea, No Paroxysmal Noc. Dyspnea, No Edema, No Lt Headedness, No Other Respiratory: No Cough, No Dry, No Shortness of breath, No SOB with excertion, No Wheezing, No Hemoptysis, No Pleuritic Pain, No Sputum, No Other Gastrointestinal: No Nausea, No Vomiting, No Abdominal Pain, No Diarrhea, No Constipation, No Melena, No Hematochezia, No Other Genitourinary: No Dysuria, No Frequency, No Incontinence, No Hematuria, No Retention, No Other Musculoskeletal: No other, No neck pain, No shoulder pain, No arm pain, No back pain, No hand pain, No leg pain, No foot pain Skin: No Rash, No Lesions, No Jaundice, No Bruising, No Other Objective Vitals Vital Signs Date Time Temp Pulse Resp B/P (MAP) Pulse Ox O2 Delivery O2 Flow Rate FiO2 06/23/25 12:54 97.0 89 20 125/82 (96) 98 97.0 06/23/25 08:00 Room Air* 0 21 Intake/Output Intake and Output 06/23/25 07:00 Intake Total 100 ml Balance 100 ml Intake Oral 100 ml # Voids 6 Exam General Appearance: Alert, Oriented X3, Cooperative, Not in acute distress HEENT: Atraumatic, Mucous membranes moist/pink Respiratory: Clear to auscultation, Normal air movement, No added sounds Cardiovascular: Regular rate, Normal S1, Normal S2, No murmurs, tenderness on palpation of chest, back Abdominal: Active bowel sounds, Soft, no distention, no tenderness Extremities: No edema, Normal pulses, No tenderness/swelling Skin: No Significant rash, for tunnels in the axilla with lowest one draining white fluid Neuro: Normal speech, sensorimotor deficits none Psych/Mental Status: Mental status NL, Mood NL Nurse was there as hcc coders during examination Medications Current Medications Medications Dose Ordered Sig/Lay Route Start Time Stop Time Status Last Admin Dose Admin Ondansetron HCl 4 mg Q4HP PRN IV 06/22/25 20:30 Acetaminophen 650 mg Q6HP PRN PO 06/22/25 20:30 Enoxaparin Sodium 40 mg DAILY SC 06/22/25 20:30 Baclofen 10 mg Q8HR PO 06/22/25 22:00 06/23/25 06:29 10 MG Pantoprazole Sodium 40 mg DAILY@0600 PO 06/23/25 06:00 06/23/25 06:29 40 MG Ceftriaxone Sodium 50 ml @ 100 mls/hr DAILY@09 IV 06/23/25 09:00 06/23/25 09:21 100 MLS/HR Aspirin 81 mg DAILY PO 06/23/25 10:00 06/23/25 09:21 81 MG Atorvastatin Calcium 40 mg HS PO 06/22/25 22:00 06/22/25 22:37 40 MG Ketorolac Tromethamine 30 mg Q6HPRN PRN IV 06/22/25 20:30 06/27/25 20:29 06/23/25 12:30 30 MG Doxycycline Hyclate 100 ml @ 50 mls/hr Q12H IV 06/22/25 21:00 06/23/25 12:30 50 MLS/HR Laboratory Results Laboratory Tests 06/23/25 05:30 Chemistry Test 06/22/25 21:07 06/23/25 05:30 Albumin 4.1 g/dL (3.2-4.8) 3.9 g/dL (3.2-4.8) Calcium Level 8.7 mg/dL (8.7-10.4) 9.1 mg/dL (8.7-10.4) Magnesium Level 1.9 mg/dL (1.6-2.6) Total Protein 7.6 g/dL (5.7-8.2) 7.4 g/dL (5.7-8.2) Cardiac Markers Test 06/22/25 21:07 B-Type Natriuretic Peptide 24.96 pg/mL (0-100) LFT Test 06/22/25 21:07 06/23/25 05:30 Alanine Aminotransferase (ALT) < 9 U/L (7-40) < 9 U/L (7-40) Alkaline Phosphatase 83 U/L (46-116) 79 U/L (46-116) Aspartate Amino Transferase (AST) 16 U/L (13-40) 13 U/L (13-40) Total Bilirubin 0.5 mg/dL (0.2-1.0) 0.4 mg/dL (0.2-1.0) Urinalysis Test 06/22/25 15:19 Urine Color Yellow (Yellow) Urine Clarity Turbid (Clear) H Urine pH 6.0 (5.0-9.0) Urine Specific [place] 1.027 (1.001-1.035) Urine Protein Negative (Negative) Urine Ketones Negative (Negative) Urine Blood Negative /uL (Negative) Urine Nitrite Negative (Negative) Urine Bilirubin Negative (Negative) Urine Urobilinogen 3 mg/dL (Negative) H Urine Leukocyte Esterase Trace /uL (Negative) Urine RBC 2 /hpf (0 - 4) Urine Microscopic WBC 3 /HPF (0-5) Urine Squamous Epithelial Cells Mod /hpf (<5) Urine Bacteria None seen /hpf (None Seen) Urine Mucus Few (None Seen) Urine Glucose Normal mg/dL (Normal) Urine Test Negative (Negative) Labs and/or images reviewed: Labs reviewed by me, Image(s) reviewed by me Assessment/Plan Assessment/Plan 39-year-old female with a history of chronic right axillary draining abscess presented to the ED with acute chronic chest pain. She reports squeezing chest pain starting yesterday, rated 9/10, radiating to the upper abdomen and back, onset while standing, increased on palpation, partially relieved by slow breathing, not worsened by exertion or position. Pain has been constant since onset and unresponsive to aspirin. Associated symptoms include body aches and chills. She denies shortness of breath, nausea, vomiting, fever, headache, cough, reflux symptoms, or upper respiratory symptoms. She reports a chronic draining axillary abscess with ongoing white discharge with no acute changes. Vital signs on admission temp 98.7, HR 83, BP 152/50, SpO2 96% on room air. WBC 14.3, hemoglobin 9.6, MCV 72.2, tropes negative, urinalysis negative. Chest x-ray is normal. We are admitting the patient for further workup and management. PMH/PSH: Right axillary abscess incised and drained 06/23: Patient here with viral syndrome and has diffuse chest pain, G-tube also complains of chest pain radiating to the back, also has chest pain on the right lower ribs. Pleuritic pain.. Patient is unable to describe if pain changes with sitting/lying down. We will continue prn analgesia Tylenol/Donalds/morphine, we will start IV PPI as patient has history of GERD, start scheduled 600 ibuprofen b.i.d., continue IV antibiotics Rocephin azithromycin, holding off steroids as this could be viral pleurisy. Suspicion for pneumonia Gram-negative Gram-positive,. Kellogg sign negative, no rales/rhonchi. Waiting for echo and echo results. Troponins were not elevated but also not negative. We will check differential blood pressure upper extremities. Diagnosis: Acute chest pain, rule out ACS Pericarditis, ruled out Acute viral syndrome Acute viral pleurisy Pneumonia, possible, Gram-negative/Gram-positive possible Right axillary draining wound, likely hidradenitis suppurativa Hyperchromic, microcytic anemia Obesity, BMI 34.9 kg/M2 Hypokalemia Substance abuse, cannabinoid Plan: IV Protonix Schedule ibuprofen 600 b.i.d. IV antibiotics (Rocephin /Doxycycline Echo Differential blood pressure Med surge Full code Plan discussed with: Patient Date of Service: Jun 23, 2025 Billing Provider: DANIAL BOGGS MD Common Visit Codes: [id number] INP/OBS CARE(HIGH) DANIAL BOGGS MD Jun 23, 2025 13:18
[2025-06-23] MEDS ORDERED: HYDROmorphone HCL 2 MG/ML VL/or syr IV PRN (13:45)
[2025-06-23 20:00] VITALS: PULSE 89; RESP 19; O2SAT 100
[2025-06-23] MEDS: HYDROcodone-ACET 5/325MG TAB PO PRN (20:39)
[2025-06-23 21:00] VITALS: BP 96/88; PULSE 89; RESP 19; TEMP 98.2; O2SAT 100
[2025-06-23] MEDS: IBUPROFEN 600 MG TAB PO SCH (22:00)
[2025-06-24] VITALS (7 sets, daily range): BP systolic 103–123; BP diastolic 59–76; PULSE 71–77; RESP 18; TEMP 97–98; O2SAT 95–98
[2025-06-24 06:01] LABS: Hemoglobin 9.3 g/dL (12.2-16.2)
[2025-06-24 06:05] LABS: Hematocrit 29.7 % (36.0-46.0); Mean Corpuscular Hemoglobin 22.5 pg (28.0-32.0); Mean Corpuscular Volume 72.1 fL (80.0-100.0); Nucleated Red Blood Cells % 0.1 %
[2025-06-24 06:17] LABS: Alkaline Phosphatase 74 U/L (46-116); Anion Gap 9 (5-15); BUN/Creatinine Ratio 9.3 (10.0-20.0); Carbon Dioxide 26 mmol/L (20-31); Chloride 104 mmol/L (98-107); Glucose 94 mg/dL (74-106); Potassium 3.7 mmol/L (3.5-5.1); Sodium 139 mmol/L (136-145); Total Protein 6.9 g/dL (5.7-8.2)
[2025-06-24 06:18] LABS: Albumin 3.6 g/dL (3.2-4.8); Bilirubin, Total 0.3 mg/dL (0.2-1.0)
[2025-06-24 06:21] LABS: Alanine Aminotransferase < 9 U/L (7-40); Blood Urea Nitrogen 7 mg/dL (9-23); Calcium 8.5 mg/dL (8.7-10.4)
[2025-06-24] MEDS: PANTOPRAZOLE 40 MG/10 ML VIAL INJ IV SCH (08:37)
[2025-06-24] MEDS: methylPREDNISolone SOD SUCC 40 MG/ML VL IV SCH (12:27)
--- NOTE | 2025-06-24 20:30 | DVHSR ---
APPROVED REPORT EXAM: Two-dimensional and M-mode echocardiogram with Doppler, color Doppler and Bubble Study. Blood Pressure: 166/101 mmHg INDICATION Chest Pain RISK FACTORS Height: 5'11, Weight: 265 DIMENSIONS LVDd4.7 (3.8-5.7cm)LA (2D)4.7 (1.9-4.0cm)Aortic Root3.2 (2.0-3.7cm) LVDs2.9 (2.5-4.0cm)LA (MM) (1.9-4.0cm)Aortic Cusp Exc1.9 (1.5-2.0cm) EF (%) 60.0 (55-70%)Rt. Atrium2.9 (1.9-4.0cm)Asc. Aorta3.2 cm IVSd0.9 (0.7-1.1cm)RV (D)3.1 (1.8-2.4cm) PWd1.2 (0.7-1.1cm) Mitral Valve MitralMitral Stenosis E wave1.04m/sMV Mean GR.mmHg A wave0.76m/sMV Peak GR.mmHg E/A ratio1.42D MVAcm2 DECEL [id number] 1/2 Timems Aortic Valve Aortic ValveAortic Stenosis V11.47m/Grupo Mean GR.5mmHg V21.62m/Grupo Peak GR.11mmHg LVOT Diameter2.1 (1.8-2.4cm)Doppler AVA3.14cm2 Pulmonic Valve V20.86m/s Tricuspid Valve TR Velocity1.97m/s [id number] ATRIA Injection of bubbles documented no interatrial shunt. Other Information Technically limited study due to BUBBLE STUDY at the end of exam Conclusion Sinus rhythm. Concentric LVH. Left atrial enlargement with aortic root enlargement. RV enlargement. Valves are normal. EF of 60% with normal RV function. Dopplers unremarkable. No pericardial effusion masses or vegetations.
[2025-06-25 01:00] VITALS: BP 99/60; PULSE 71; RESP 17; TEMP 97.2; O2SAT 97
[2025-06-25 05:00] VITALS: BP 101/67; PULSE 62; RESP 17; TEMP 97.2; O2SAT 98
[2025-06-25 08:00] VITALS: PULSE 59; RESP 18; O2SAT 97
[2025-06-25 08:35] VITALS: BP 103/61; PULSE 59; RESP 18; TEMP 97.6; O2SAT 97
--- NOTE | 2025-06-25 11:05 | DVHPN2 ---
Reviewed: H&P Changes from previous H/P or p: No Changes General: Per HPI Eyes: No Pain, No Vision change, No Conjunctivae inflammation, No Eyelid inflammation, No Other, No Redness ENT: No Ear pain, No Ear discharge, No Nose pain, No Nose discharge, No Nose congestion, No Mouth pain, No Mouth swelling, No Throat pain, No Throat swelling, No Other Cardiovascular: Chest Pain; No Palpitations, No Orthopnea, No Paroxysmal Noc. Dyspnea, No Edema, No Lt Headedness, No Other Respiratory: No Cough, No Dry, No Shortness of breath, No SOB with excertion, No Wheezing, No Hemoptysis, No Pleuritic Pain, No Sputum, No Other Gastrointestinal: No Nausea, No Vomiting, No Abdominal Pain, No Diarrhea, No Constipation, No Melena, No Hematochezia, No Other Genitourinary: No Dysuria, No Frequency, No Incontinence, No Hematuria, No Retention, No Other Musculoskeletal: No other, No neck pain, No shoulder pain, No arm pain, No back pain, No hand pain, No leg pain, No foot pain Skin: No Rash, No Lesions, No Jaundice, No Bruising, No Other Objective Vitals Vital Signs Date Time Temp Pulse Resp B/P (MAP) Pulse Ox O2 Delivery O2 Flow Rate FiO2 06/24/25 08:53 98.0 74 18 107/59 (75) 95 98.0 06/23/25 20:00 Room Air* 0 21 Intake/Output Intake and Output 06/24/25 07:00 Intake Total 1350 ml Balance 1350 ml Intake Oral 1100 ml IV Total 250 ml # Voids 12 # Bowel Movements 1 Exam General Appearance: Alert, Oriented X3, Cooperative, Not in acute distress HEENT: Atraumatic, Mucous membranes moist/pink Respiratory: Clear to auscultation, Normal air movement, No added sounds Cardiovascular: Regular rate, Normal S1, Normal S2, No murmurs, tenderness on palpation of chest, back Abdominal: Active bowel sounds, Soft, no distention, no tenderness Extremities: No edema, Normal pulses, No tenderness/swelling Skin: No Significant rash, for tunnels in the axilla with lowest one draining white fluid Neuro: Normal speech, sensorimotor deficits none Psych/Mental Status: Mental status NL, Mood NL 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 Medications Current Medications Medications Dose Ordered Sig/Lay Route Start Time Stop Time Status Last Admin Dose Admin Ondansetron HCl 4 mg Q4HP PRN IV 06/22/25 20:30 Acetaminophen 650 mg Q6HP PRN PO 06/22/25 20:30 Enoxaparin Sodium 40 mg DAILY SC 06/22/25 20:30 Baclofen 10 mg Q8HR PO 06/22/25 22:00 06/24/25 06:12 10 MG Ceftriaxone Sodium 50 ml @ 100 mls/hr DAILY@09 IV 06/23/25 09:00 06/24/25 08:37 100 MLS/HR Aspirin 81 mg DAILY PO 06/23/25 10:00 06/24/25 08:38 81 MG Atorvastatin Calcium 40 mg HS PO 06/22/25 22:00 06/23/25 22:24 40 MG Doxycycline Hyclate 100 ml @ 50 mls/hr Q12H IV 06/22/25 21:00 06/23/25 20:41 50 MLS/HR Ibuprofen 600 mg BID PO 06/23/25 22:00 06/24/25 08:38 600 MG Pantoprazole Sodium 40 mg DAILY IV 06/24/25 10:00 06/24/25 08:37 40 MG Acetaminophen/ Hydrocodone Bitart 1 tab Q4HPRN PRN PO 06/23/25 13:45 06/23/25 20:39 1 TAB Hydromorphone HCl 0.25 mg Q4HPRN PRN IV 06/23/25 13:45 Laboratory Results Laboratory Tests 06/24/25 05:16 Chemistry Test 06/24/25 05:16 Albumin 3.6 g/dL (3.2-4.8) Calcium Level 8.5 mg/dL (8.7-10.4) L Total Protein 6.9 g/dL (5.7-8.2) LFT Test 06/24/25 05:16 Alanine Aminotransferase (ALT) < 9 U/L (7-40) Alkaline Phosphatase 74 U/L (46-116) Aspartate Amino Transferase (AST) 11 U/L (13-40) L Total Bilirubin 0.3 mg/dL (0.2-1.0) Urinalysis Test 06/22/25 15:19 Urine Color Yellow (Yellow) Urine Clarity Turbid (Clear) H Urine pH 6.0 (5.0-9.0) Urine Specific [place] 1.027 (1.001-1.035) Urine Protein Negative (Negative) Urine Ketones Negative (Negative) Urine Blood Negative /uL (Negative) Urine Nitrite Negative (Negative) Urine Bilirubin Negative (Negative) Urine Urobilinogen 3 mg/dL (Negative) H Urine Leukocyte Esterase Trace /uL (Negative) Urine RBC 2 /hpf (0 - 4) Urine Microscopic WBC 3 /HPF (0-5) Urine Squamous Epithelial Cells Mod /hpf (<5) Urine Bacteria None seen /hpf (None Seen) Urine Mucus Few (None Seen) Urine Glucose Normal mg/dL (Normal) Urine Test Negative (Negative) Labs and/or images reviewed: Labs reviewed by me, Image(s) reviewed by me Assessment/Plan Assessment/Plan 39-year-old female with a history of chronic right axillary draining abscess presented to the ED with acute chronic chest pain. She reports squeezing chest pain starting yesterday, rated 9/10, radiating to the upper abdomen and back, onset while standing, increased on palpation, partially relieved by slow breathing, not worsened by exertion or position. Pain has been constant since onset and unresponsive to aspirin. Associated symptoms include body aches and chills. She denies shortness of breath, nausea, vomiting, fever, headache, cough, reflux symptoms, or upper respiratory symptoms. She reports a chronic draining axillary abscess with ongoing white discharge with no acute changes. Vital signs on admission temp 98.7, HR 83, BP 152/50, SpO2 96% on room air. WBC 14.3, hemoglobin 9.6, MCV 72.2, tropes negative, urinalysis negative. Chest x-ray is normal. We are admitting the patient for further workup and management. PMH/PSH: Right axillary abscess incised and drained 06/23: Patient here with viral syndrome and has diffuse chest pain, G-tube also complains of chest pain radiating to the back, also has chest pain on the right lower ribs. Pleuritic pain.. Patient is unable to describe if pain changes with sitting/lying down. We will continue prn analgesia Tylenol/[place]/morphine, we will start IV PPI as patient has history of GERD, start scheduled 600 ibuprofen b.i.d., continue IV antibiotics Rocephin azithromycin, holding off steroids as this could be viral pleurisy. Suspicion for pneumonia Gram-negative Gram-positive,. Kellogg sign negative, no rales/rhonchi. Waiting for echo and echo results. Troponins were not elevated but also not negative. We will check differential blood pressure upper extremities. 06/24: Differential upper extremity blood pressure was systolic differential was 10 mm Hg, the pain remains substernal, echocardiogram today. Continuing IV antibiotics. We will start trial with Solu-Medrol 40 IV daily. Continue therapy for pneumonia. Diagnosis: Acute chest pain, rule out ACS Pericarditis, ruled out Acute viral syndrome Acute viral pleurisy Pneumonia, possible, Gram-negative/Gram-positive possible Right axillary draining wound, likely hidradenitis suppurativa Hyperchromic, microcytic anemia Obesity, BMI 34.9 kg/M2 Hypokalemia Substance abuse, cannabinoid Plan: IV Protonix Schedule ibuprofen 600 b.i.d. IV antibiotics (Rocephin /Doxycycline Echo Differential blood pressure Med surge Full code Plan discussed with: Patient My Orders Orders - DANIAL BOGGS MD Procedure Category Date Status Time Ibuprofen Tablet PHA 06/23/25 In Process (Motrin Tablet) 22:00 Pantoprazole PHA 06/24/25 In Process (Protonix) 10:00 Hydrocodone-Acet PHA 06/23/25 In Process 5/325mg Tab ([place] 13:45 Hydromorphone PHA 06/23/25 In Process Injection (Dilaudid 13:45 Methylprednisolone PHA 06/24/25 Verified Sod Succ (Solu Medrol 10:00 Date of Service: Jun 24, 2025 Billing Provider: DANIAL BOGGS MD Common Visit Codes: [id number] INP/OBS CARE(HIGH) DANIAL BOGGS MD Jun 24, 2025 09:58
--- NOTE | 2025-06-25 11:44 | DVHDS2 ---
Discharge Summary Date of Admission Jun 22, 2025 at 20:21 Date of Discharge: Jun 25, 2025 Labs/Diagnostic Data: Laboratory Results Test 06/24/25 05:16 06/22/25 21:07 06/22/25 19:50 06/22/25 15:19 White Blood Count 8.9 10^3/uL (4.4-10.8) Red Blood Count 4.12 10^6/uL (4.0-5.20) Hemoglobin 9.3 g/dL (12.2-16.2) Hematocrit 29.7 % (36.0-46.0) Mean Corpuscular Volume 72.1 fL (80.0-100.0) Mean Corpuscular Hemoglobin 22.5 pg (28.0-32.0) Mean Corpuscular Hemoglobin Concent 31.2 g/dL (32.0-36.0) Red Cell Distribution Width 17.1 % (11.8-14.3) Platelet Count 334 10^3/uL (140-450) Mean Platelet Volume 8.1 fL (6.9-10.8) Neutrophils (%) (Auto) 62.7 % (37.0-80.0) Lymphocytes (%) (Auto) 26.1 % (10.0-50.0) Monocytes (%) (Auto) 10.0 % (0.0-12.0) Eosinophils (%) (Auto) 1.1 % (0.0-7.0) Basophils (%) (Auto) 0.1 % (0.0-2.0) Neutrophils # (Auto) 5.6 10 ^3/uL (1.6-8.6) Lymphocytes # (Auto) 2.3 10 ^3/uL (0.4-5.4) Monocytes # (Auto) 0.9 10 ^3/uL (0-1.3) Eosinophils # (Auto) 0.1 10 ^3/uL (0-0.8) Basophils # (Auto) 0 10 ^3/uL (0-0.2) Nucleated Red Blood Cells 0.1 % Sodium Level 139 mmol/L (136-145) Potassium Level 3.7 mmol/L (3.5-5.1) Chloride Level 104 mmol/L (98-107) Carbon Dioxide Level 26 mmol/L (20-31) Anion Gap 9 (5-15) Blood Urea Nitrogen 7 mg/dL (9-23) Creatinine 0.75 mg/dL (0.550-1.02) Glomerular Filtration Rate Calc 104 mL/min (>90) BUN/Creatinine Ratio 9.3 (10.0-20.0) Serum Glucose 94 mg/dL (74-106) Calcium Level 8.5 mg/dL (8.7-10.4) Total Bilirubin 0.3 mg/dL (0.2-1.0) Aspartate Amino Transferase (AST) 11 U/L (13-40) Alanine Aminotransferase (ALT) < 9 U/L (7-40) Alkaline Phosphatase 74 U/L (46-116) Total Protein 6.9 g/dL (5.7-8.2) Albumin 3.6 g/dL (3.2-4.8) Erythrocyte Sedimentation Rate 28 mm/hr (0-20) Lactic Acid Level 0.6 mmol/L (0.4-2.0) Magnesium Level 1.9 mg/dL (1.6-2.6) Iron Level 17 ug/dL (50-170) Total Iron Binding Capacity 334 ug/dL (250-425) Percent Iron Saturation 5.1 % (15-50) Ferritin 11.4 ng/mL (10-291) C-Reactive Protein High Sensitivity 5.52 mg/dL (<1.0) B-Type Natriuretic Peptide 24.96 pg/mL (0-100) Influenza Type A Antigen Negative (Negative) Influenza Type B Antigen Negative (Negative) SARS-CoV-2 Antigen (Rapid) Negative (NEGATIVE) Urine Color Yellow (Yellow) Urine Clarity Turbid (Clear) Urine pH 6.0 (5.0-9.0) Urine Specific [place] 1.027 (1.001-1.035) Urine Protein Negative (Negative) Urine Ketones Negative (Negative) Urine Blood Negative /uL (Negative) Urine Nitrite Negative (Negative) Urine Bilirubin Negative (Negative) Urine Urobilinogen 3 mg/dL (Negative) Urine Leukocyte Esterase Trace /uL (Negative) Urine RBC 2 /hpf (0 - 4) Urine Microscopic WBC 3 /HPF (0-5) Urine Squamous Epithelial Cells Mod /hpf (<5) Urine Bacteria None seen /hpf (None Seen) Urine Mucus Few (None Seen) Urine Glucose Normal mg/dL (Normal) Urine Test Negative (Negative) Urine Opiates Screen Neg (NEGATIVE) Urine Fentanyl Screen Neg (NEGATIVE) Urine Barbiturates Screen Neg (NEGATIVE) Urine Phencyclidine Screen Neg (NEGATIVE) Urine Amphetamines Screen Neg (NEGATIVE) Urine Benzodiazepines Screen Neg (NEGATIVE) Urine Cocaine Screen Neg (NEGATIVE) Urine Cannabinoids Screen Pos (NEGATIVE) Test 06/22/25 12:53 Troponin I High Sensitivity < 3 ng/L (</=34) Other Laboratory Tests 06/24/25 05:16 Brief Hx & Hospital Course: 39-year-old female with a history of chronic right axillary draining abscess presented to the ED with acute chronic chest pain. She reports squeezing chest pain starting yesterday, rated 9/10, radiating to the upper abdomen and back, onset while standing, increased on palpation, partially relieved by slow breathing, not worsened by exertion or position. Pain has been constant since onset and unresponsive to aspirin. Associated symptoms include body aches and chills. She denies shortness of breath, nausea, vomiting, fever, headache, cough, reflux symptoms, or upper respiratory symptoms. She reports a chronic draining axillary abscess with ongoing white discharge with no acute changes. Vital signs on admission temp 98.7, HR 83, BP 152/50, SpO2 96% on room air. WBC 14.3, hemoglobin 9.6, MCV 72.2, tropes negative, urinalysis negative. Chest x-ray is normal. We are admitting the patient for further workup and management. PMH/PSHx: Right axillary abscess incised and drained 06/23: Patient here with viral syndrome and has diffuse chest pain, G-tube also complains of chest pain radiating to the back, also has chest pain on the right lower ribs. Pleuritic pain.. Patient is unable to describe if pain changes with sitting/lying down. We will continue prn analgesia Tylenol/[place]/morphine, we will start IV PPI as patient has history of GERD, start scheduled 600 ibuprofen b.i.d., continue IV antibiotics Rocephin azithromycin, holding off steroids as this could be viral pleurisy. Suspicion for pneumonia Gram-negative Gram-positive,. Kellogg sign negative, no rales/rhonchi. Waiting for echo and echo results. Troponins were not elevated but also not negative. We will check differential blood pressure upper extremities. 06/24: Differential upper extremity blood pressure was systolic differential was 10 mm Hg, the pain remains substernal, echocardiogram today. Continuing IV antibiotics. We will start trial with Solu-Medrol 40 IV daily. Continue therapy for pneumonia. 06/25: Patient still having chest pain but improved. No oxygen requirement vital signs stable. Echocardiogram done showing no effusions, ruled out tamponade and pericarditis. Still remains tender to palpation on chest wall. Chest pain likely costochondritis. Stable for discharge as per plan below. We will do prednisone 20 mg daily for 4 days, azithromycin 500 mg daily for 5 days, ibuprofen 600 mg twice daily for 5 days, Protonix 40 mg daily for 1 month,. Patient to follow up with DC clinic and set up PCP and follow up with PCP to review discharge and ensure resolution of symptoms. Diagnosis: Acute chest pain, likely costochondritis Ruled out ACS Pericarditis, ruled out Acute viral syndrome Acute viral pleurisy Pneumonia, possible, Gram-negative/Gram-positive possible Right axillary draining wound, likely hidradenitis suppurativa Hyperchromic, microcytic anemia Obesity, BMI 34.9 kg/M2 Hypokalemia Substance abuse, cannabinoid plan: -prednisone 20 mg daily for 4 days, -azithromycin 500 mg daily for 5 days, -ibuprofen 600 mg twice daily for 5 days, -Protonix 40 mg daily for 1 month,. -Patient to follow up with DC clinic -set up PCP and follow up with PCP to review discharge and ensure resolution of symptoms. Condition at Discharge: Fair Final Diagnosis/Problems List Acute chest pain, likely costochondritis Ruled out ACS Pericarditis, ruled out Acute viral syndrome Acute viral pleurisy Pneumonia, possible, Gram-negative/Gram-positive possible Right axillary draining wound, likely hidradenitis suppurativa Hyperchromic, microcytic anemia Obesity, BMI 34.9 kg/M2 Hypokalemia Substance abuse, cannabinoid Discharge Disposition: Home Discharge Instruct/Medications No Active Prescriptions or Reported Meds Discharge Statement: "Patient was advised to return to the ER or call 911 if any headaches, dizziness, shortness of breath, chest pain, abdominal pain, bleeding, fevers, or worsening of medical condition. Patient was counseled about treatment plan, medications, possible side effects, patientverbalized understanding. All questions were answered to the best of my ability. This discharge took greater then 30 minutes in planning, reviewing documentation, counseling the patient, and discussing with other team members." ASSESSMENT ASSESSMENT Assessment Date of Service: Jun 25, 2025 Billing Provider: DANIAL BOGGS MD Common Visit Codes: [id number] DISCH DAY >30min DANIAL BOGGS MD Jun 25, 2025 11:05
[2025-06-25] MEDS ORDERED: PANT40TA2 PO (12:59)
[2025-06-25] MEDS ORDERED: IBUP1TAB5 PO (12:59)
[2025-06-25] MEDS ORDERED: AZIT500T66 PO (12:59)
[2025-06-25] MEDS ORDERED: PRED20TA2 PO (12:59)
[2025-06-25 13:00] VITALS: BP 109/67; PULSE 55; RESP 18; TEMP 97.2; O2SAT 95
[2025-06-25 13:57] VITALS: BP 109/67; PULSE 55; RESP 18; TEMP 97.2; O2SAT 95
== END 2025-06-25 15:10 | disposition home or self-care (01) | DRG 205 ==
LOC: ER 11:27 → OVERFLOW 20:21 → EAST 22:05
PROVIDERS: ADMIT Student in an Organized Health Care Education/Training Program; ATTEND Student in an Organized Health Care Education/Training Program
DX: M94.0 Chondrocostal junction syndrome [Tietze] (principal); J15.69 Pneumonia due to other Gram-negative bacteria; J15.9 Unspecified bacterial pneumonia; D50.9 Iron deficiency anemia, unspecified; E87.6 Hypokalemia; F17.210 Nicotine dependence, cigarettes, uncomplicated; J98.4 Other disorders of lung; E66.9 Obesity, unspecified; B34.9 Viral infection, unspecified; G89.29 Other chronic pain; K21.9 Gastro-esophageal reflux disease without esophagitis; Z68.34 Body mass index [BMI] 34.0-34.9, adult; Z79.2 Long term (current) use of antibiotics; Z79.899 Other long term (current) drug therapy; Z98.891 History of uterine scar from previous surgery
CPT/HCPCS: 36415; 71046; 80048; 80053; 80307; 81001; 81025; 82728; 83540; 83550; 83605; 83735; 83880; 84484; 85025; 85652; 86141; 87426; 87804; 93005; 93306; G0378; J1885; J2470